=== PATIENT | female | born 1970 | race Caucasian/White ===

== ENCOUNTER 2016-09-21 23:31 | Emergency (ER) | payer BC ==
--- NOTE | ~2016-09-21 | CR170 ---
[facility] A Service [facility] RADIOLOGY TEXT RESULTS PATIENT: JIMI WALKER LOCATION: SED : 74 UNIT #: [id number] AGE: [address]: Rico Romero PAC SEX: F ORDER DR: [id number] [place] [id number] E MR#: [id number] Acc #: [id number] NAME: JIMI WALKER : 1970 SEX: F STUDY DATE/TIME: 09/21/2016 23:28 UNIT: SED ROOM: STUDY DESCRIPTION: CR Knee 2 Views Rt Attending Physician: Rico Romero P.A.-C. Ordering Physician: Rico Romero P.A.-C. Primary Care Physician: Yeimi Rhodes M.D. MEDICAL IMAGING REPORT This report is preliminary unless electronic signature is present. EXAM 2 views right knee. DATE 09/21/2016 HISTORY 45-year-old female with complaints of right knee pain after jumping on trampoline earlier today. COMPARISON None. FINDINGS AP and lateral projection of the knee shows smooth articular anatomy without indication of fracture or dislocation at the major weight-bearing surface of the knee. There is no indication of radiopaque foreign body about the knee surface or joint effusion. IMPRESSION Normal knee. Dictated by... Shobha Castro M.D. THIS IS AN ELECTRONICALLY VERIFIED REPORT Shobha Castro M.D. at 09/22/2016 6:02 AM MAGUI/zayra TD: 09/22/2016 02:23 JOB #: [id number] [facility] A Service [facility] RADIOLOGY TEXT RESULTS PATIENT: JIMI WALKER LOCATION: SED : 74 UNIT #: [id number] AGE: [address]: Rico Romero PAC SEX: F ORDER DR: MEDICAL IMAGING REPORT Page 1 of 1
[~2016-09-21 23:31] MED LIST: ADVIL200 M1 PO; ALBUTEROL17 GM; BAYER CHEWABLE81 MG PO; BENZONATATE; CIPRO PO; DEXAMETHASONE; FAMOTIDINE PO; IBUPROFEN800 MG PO; LEVAQUIN PO; LORTAB 7.51 TAB PO; METRONIDAZOLE PO; NAPROSYN250 M1 PO; NAPROSYN500 MG PO; PHENERGAN W/CO120 ML PO; PREDNISONE PO; PREDNISONE5 M1; PRENATAL MULITV1 TAB PO; PROZAC PO; RASPBERRY KETONES; ROBAXIN500 MG PO; TOBRAMYCIN; TYL325 PO; TYLENOL #3 PO; VICOPROFEN 200-1 TAB PO; VOLTAREN50 MG PO; ZOFRAN PO; ZOLOFT; ZOLOFT PO; ZOLOFT100 MG PO; ZOLOFT50 MG PO; [UNRECOGNIZED DRUG - OTHER]
== END 2016-09-22 00:13 | disposition home or self-care (01) ==
LOC: SED 23:31
DX: S83.421A Sprain of lateral collateral ligament of right knee, initial encounter (principal); F32.9 Major depressive disorder, single episode, unspecified; Z88.8 Allergy status to other drugs, medicaments and biological substances; Z79.899 Other long term (current) drug therapy; X50.1XXA Overexertion from prolonged static or awkward postures, initial encounter; Y93.44 Activity, trampolining; Y92.89 Other specified places as the place of occurrence of the external cause
CPT/HCPCS: 29505; 73560; 99283

== ENCOUNTER → 2016-10-02 | Outpatient (CLI) | payer BC ==
--- NOTE | ~2016-10-02 | MR104 ---
[facility] A Service of [facility] RADIOLOGY TEXT RESULTS PATIENT: JIMI WALKER LOCATION: [facility] : 74 UNIT #: [id number] AGE: [address]: Pratik Qureshi MD ORTHOPAEDIC SEX: F ORDER DR: [id number] [place] [id number] O MR#: [id number] Acc #: [id number] NAME: JIMI WALKER : 1970 SEX: F STUDY DATE/TIME: 10/02/2016 9:32 UNIT: [facility] ROOM: STUDY DESCRIPTION: MR Knee Wo Contrast Rt Attending Physician: Pratik Qureshi M.D. Referring Physician: Pratik Qureshi M.D. Ordering Physician: Pratik Qureshi M.D. Primary Care Physician: Yeimi Rhodes M.D. MRI CENTER REPORT This report is preliminary unless electronic signature is present. EXAM MRI of the right knee, 10/02/2016. HISTORY Order states right lateral knee pain. [place] Patient states body turned but knee did not. Right knee pain, especially laterally, with some instability and swelling. No prior knee surgery. FINDINGS There is a rlyp-hf-xjwhqnll joint effusion. A sizable popliteal cyst measures 7.6 cm in length. Patellofemoral alignment is normal. There is ytw-un-ektbbahe grade chondromalacia of the medial patellar facet. There is low-grade chondromalacia of the central femoral trochlear groove. Quadriceps and patellar tendons are intact. There is a complete midsubstance ACL tear which appears acute. There is partial detachment from the femoral origin. The PCL is intact. The medial meniscus and MCL are normal. There is a moderate bone contusion of the posterior medial subarticular tibia with a small subcortical trabecular fracture line identified with no articular depression. There is subtle low grade chondromalacia or chondral injury of the weightbearing medial femoral condyle suggestive of a subtle chondral fissure. The lateral meniscus, lateral collateral ligament complex, and popliteus tendon are intact. The MCL is normal. STS. [facility] A Service of [facility] RADIOLOGY TEXT RESULTS PATIENT: JIMI WALKER LOCATION: [facility] : [birth year] UNIT #: [id number] AGE: [address]: Pratik Qureshi MD ORTHOPAEDIC SEX: F ORDER DR: There is a sizable posterolateral tibial subarticular bone contusion with probable subtle cortical impaction along the posterior nonarticular tibial rim. There is no evidence of a high-grade posterolateral corner injury. Articular cartilage of the lateral compartment is normal. There is no marrow lesion or a loose body. IMPRESSION 1. Complete ACL tear detailed above. 2. Menisci and collateral ligaments are normal. 3. Extensive posterior tibial bone contusion with lateral tibial rim minimal impaction injury and small trabecular microfracture line of the posteromedial tibia. 4. Chondromalacia patellofemoral compartment. 5. Minimal chondromalacia versus chondral injury of the weightbearing medial femoral condyle detailed above. 6. Posterolateral corner is intact. Dictated by... Africa Haskins M.D. THIS IS AN ELECTRONICALLY VERIFIED REPORT Africa Haskins M.D. at 10/03/2016 11:34 AM CHRIS/alan TD: 10/03/2016 09:23 JOB #: [id number] MRI CENTER REPORT Page 1 of 1
== END | disposition home or self-care (01) ==
LOC: SMRI 09:15
DX: M25.561 Pain in right knee (principal); S83.511A Sprain of anterior cruciate ligament of right knee, initial encounter; S80.11XA Contusion of right lower leg, initial encounter; M22.41 Chondromalacia patellae, right knee
CPT/HCPCS: 73721

== ENCOUNTER → 2016-10-31 | Outpatient (CLI) | payer BC ==
[2016-10-31 08:09] LABS: HEMATOCRIT 40.5 % (35.0-45.0); HEMOGLOBIN 13.7 gm/dL (12.0-16.0); MEAN CELL VOLUME 91.3 FL (83-96); MEAN CORPUSCULAR HEMOGLOBIN 30.9 PG (28-34); MEAN CORPUSCULAR HGB CONC 33.9 g/dL (30-36); MEAN PLATELET VOLUME 7.9 FL (6.5-11.5); RED BLOOD COUNT 4.44 X10e (3.90-5.30); RED CELL DISTRIBUTION WIDTH 14.2 % (11.0-15.5)
[2016-10-31 08:28] LABS: CALCIUM SERUM 8.6 mg/dL (8.4-10.2); CREATININE SERUM 0.9 mg/dL (0.6-1.4); GLOM FILT RATE Estimated 78.4 mL/min (>60)
== END | disposition home or self-care (01) ==
LOC: SLAB 07:50
PROVIDERS: Orthopaedic Surgery
DX: Z01.812 Encounter for preprocedural laboratory examination (principal)
CPT/HCPCS: 36415; 80048; 85027